=== PATIENT | female | born 1965 | race Hispanic/Latino ===

== ENCOUNTER 2021-05-15 10:05 | Outpatient (CLI) | payer BC ==
--- NOTE | 2021-05-15 15:01 | Magnetic Resonance Report ---
MRA HEAD 05/15/2021 INDICATION / CLINICAL INFORMATION: MENINGIOMA,VERTIGO. TECHNIQUE: Routine MRA of the head is performed. 3-D/MIP reformats postprocessed. COMPARISON: None available. FINDINGS: MRA HEAD: Intracranial internal carotid arteries: No significant abnormality. Anterior cerebral arteries: No significant abnormality. Middle cerebral arteries: No significant abnormality. Intracranial vertebral arteries: No significant abnormality. Basilar artery: No significant abnormality. Posterior cerebral arteries: No significant abnormality. IMPRESSION: No significant abnormality. Signer Name: Alejandro Melo MD Signed: 05/15/2021 2:57 PM Workstation Name: [id number]
--- NOTE | 2021-05-15 15:04 | Magnetic Resonance Report ---
MRI BRAIN 05/15/2021 INDICATION / CLINICAL INFORMATION: MENINGIOMA,VERTIGO. TECHNIQUE: Multiplanar, multisequence MR images of the brain were obtained. COMPARISON: 06/22/2014 FINDINGS: BRAIN / INTRACRANIAL CONTENTS: Unenhanced and enhanced MR images of the brain demonstrate no evidence of acute abnormality. Anterior left frontal craniotomy defect is present. There is no evidence of underlying mass or lesion . There is no evidence of abnormal masslike enhancement. Images of the brain demonstrate no evidence of acute abnormality. Ventricles and sulci are normal in size and shape. There is no evidence of ischemic injury, demyelination, hemorrhage, or mass. There are no abnormal ex tra-axial fluid collections. Detailed views of the cerebellopontine angles were included. There is no evidence of acoustic neuroma or other abnormality involving the temporal bones. EXTRACRANIAL: Unremarkable CRANIOCERVICAL JUNCTION: No significant abnormality. VASCULAR FLOW-VOIDS: No significant abnormality. IMPRESSION: Postoperative changes. Otherwise negative unenhanced and enhanced MRI of the brain. Signer Name: Alejandro Melo MD Signed: 05/15/2021 3:00 PM Workstation Name: [id number]
== END 2021-05-15 10:06 | disposition home or self-care (01) ==
LOC: MRI 10:05
DX: D32.9 Benign neoplasm of meninges, unspecified (principal); R42 Dizziness and giddiness; H93.11 Tinnitus, right ear
CPT/HCPCS: 70546; 70553; A9575